=== PATIENT | female | born 1970 | race African-American/Black ===

== ENCOUNTER 2018-05-06 17:42 | Emergency (ER) | payer MEDICAID, OTHER ==
[~2018-05-06] VITALS: Ht 157.5 cm; Wt 86.2 kg
[2018-05-06 17:41] VITALS: BP 127/87
== END 2018-05-06 19:54 | disposition home or self-care (01) ==
LOC: ER 17:42
DX: I83.93 Asymptomatic varicose veins of bilateral lower extremities (principal); M25.562 Pain in left knee; M25.561 Pain in right knee
CPT/HCPCS: 73562

== ENCOUNTER 2018-06-10 11:25 | Inpatient (IN) | payer MEDICAID | END 2018-06-17 15:00 | disposition home or self-care (01) | LOC: CENTRAL 06-13 00:32 → ER 11:25 → CENTRAL 06-11 02:11 → TELE-CENTR 06-11 12:33 → OVERFLOW 22:10 | DX: K11.20 Sialoadenitis, unspecified (principal); E66.9 Obesity, unspecified; N39.0 Urinary tract infection, site not specified; R50.9 Fever, unspecified; E78.5 Hyperlipidemia, unspecified ==